=== PATIENT | male | born 1955 | race Caucasian/White ===

== ENCOUNTER 2020-07-25 18:42 | Emergency (ER) | payer OTHER ==
[~2020-07-25] VITALS: Ht 175.3 cm; Wt 95.3 kg
[~2020-07-25 18:42] MED LIST: FLOMAX0.4 MG PO; LAMICTAL100 MG PO; MIRTAZAPINE45 MG PO; MOBIC15 MG PO; TERBINAFINE HC250 MG PO; TRAZODONE HCL150 MG PO; ULTRAM50 MG PO
[2020-07-25] MEDS ORDERED: DOXEPIN HCL50 MG PO (18:55)
[2020-07-25] MEDS ORDERED: HYDROXYZINE HCL50 MG PO (18:56)
[2020-07-25] MEDS ORDERED: MELOXICAM7.5 MG PO (18:57)
[2020-07-25] MEDS ORDERED: DULOXETINE HCL30 MG PO (18:57)
== END 2020-07-25 20:25 | disposition home or self-care (01) ==
LOC: ED 18:42
DX: S02.32XA Fracture of orbital floor, left side, initial encounter for closed fracture (principal); S01.112A Laceration without foreign body of left eyelid and periocular area, initial encounter; Y04.8XXA Assault by other bodily force, initial encounter; Z79.899 Other long term (current) drug therapy
CPT/HCPCS: 12011; 70450; 70486; 99284-25